=== PATIENT | female | born 1990 | race African-American/Black ===

== ENCOUNTER 2017-07-31 14:06 | Emergency (ER) | payer BC ==
[~2017-07-31] VITALS: Ht 167.6 cm; Wt 101.0 kg
[~2017-07-31 14:06] MED LIST: OMEPRAZOLE
[2017-07-31] MEDS ORDERED: ACETAMINOPHEN 325MG TABLET PO STA (15:16)
[2017-07-31 15:40] LABS: BASOPHILS % 0.6 % (0.0-2.0); EOSINOPHILS % 0.9 % (0.0-5.0); HEMATOCRIT. 41.8 % (36.0-48.0); HEMOGLOBIN. 14.2 g/dL (12.0-16.0); LYMPHOCYTES % 22.4 % (20.0-50.0); MEAN CORPUSCULAR HEMOGLOBIN 30.3 pg (28.0-32.0); MEAN CORPUSCULAR VOLUME 89.4 fL (81.0-99.0); MEAN PLATELET VOLUME 10.5 fl (7.4-10.4); MONOCYTES % 6.7 % (2.0-8.0); NEUTROPHILS % 69.4 % (40.0-76.0); PLATELET 229 x1000/uL (130-400); RED BLOOD CELL COUNT 4.68 mill/uL (4.2-5.4); RED CELL DISTRIBUTION WIDTH 13.3 % (11.6-14.6)
[2017-07-31 15:45] LABS: CHLORIDE 107 mEq/L (98-107)
[2017-07-31 15:47] LABS: HCG SCREEN NEGATIVE
[2017-07-31 15:51] LABS: CARBON DIOXIDE 29 mEq/L (21-32)
[2017-07-31 16:07] LABS: CLARITY URINE CLOUDY (CLEAR); COLOR URINE RED (YELLOW); KETONES URINE NEGATIVE (NEGATIVE); LEUKOCYTE ESTERASE URINE 1+ (NEGATIVE); NITRITE URINE NEGATIVE (NEGATIVE); OCCULT BLOOD URINE 3+ (NEGATIVE); PH URINE 5.5 (4.5-8.0); PROTEIN URINE 2+ (NEGATIVE); SPECIFIC GRAVITY URINE 1.027 (1.005-1.030); UROBILINOGEN URINE 0.2 E.U./dL (0.2-1.0)
[2017-07-31 18:39] VITALS: BP 116/80
== END 2017-07-31 19:13 | disposition home or self-care (01) ==
LOC: ER 14:34
DX: N39.0 Urinary tract infection, site not specified (principal); N94.6 Dysmenorrhea, unspecified; N89.8 Other specified noninflammatory disorders of vagina; F17.200 Nicotine dependence, unspecified, uncomplicated
CPT/HCPCS: 36415; 80053; 81001; 83690; 84703; 85025; 87210; 99284; Z7610

== ENCOUNTER 2017-08-12 16:37 | Emergency (ER) | payer BC | END 2017-08-12 18:26 | disposition left against medical advice (07) | LOC: ER 16:37 | DX: R10.9 Unspecified abdominal pain (principal); Z53.21 Procedure and treatment not carried out due to patient leaving prior to being seen by health care provider ==

== ENCOUNTER 2017-08-14 20:23 | Emergency (ER) | payer BC ==
[~2017-08-14] VITALS: Ht 167.6 cm; Wt 85.0 kg
[2017-08-14 22:17] LABS: CLARITY URINE CLEAR (CLEAR); COLOR URINE YELLOW (YELLOW); KETONES URINE TRACE (NEGATIVE); LEUKOCYTE ESTERASE URINE NEGATIVE (NEGATIVE); NITRITE URINE NEGATIVE (NEGATIVE); OCCULT BLOOD URINE NEGATIVE (NEGATIVE); PH URINE 5.5 (4.5-8.0); PROTEIN URINE NEGATIVE (NEGATIVE); UROBILINOGEN URINE 0.2 E.U./dL (0.2-1.0)
[2017-08-15 07:00] VITALS: BP 107/71
== END 2017-08-15 07:15 | disposition home or self-care (01) ==
LOC: ER 21:43
DX: J03.90 Acute tonsillitis, unspecified (principal); R19.7 Diarrhea, unspecified; R10.9 Unspecified abdominal pain; F17.200 Nicotine dependence, unspecified, uncomplicated; F12.10 Cannabis abuse, uncomplicated; Z90.49 Acquired absence of other specified parts of digestive tract
CPT/HCPCS: 81003; 81025; 99283; Z7610

== ENCOUNTER 2021-09-24 13:46 | Emergency (ER) | payer BC, MEDICAID ==
[~2021-09-24] VITALS: Ht 167.6 cm; Wt 86.0 kg
[2021-09-24] MEDS ORDERED: IBUP-2029 MT (15:54)
[2021-09-24] MEDS ORDERED: KETOROLAC 60MG/2ML VIAL IM ONE (16:00)
[2021-09-24 16:41] VITALS: BP 115/76
== END 2021-09-24 16:51 | disposition home or self-care (01) ==
LOC: ER 13:46
DX: J06.9 Acute upper respiratory infection, unspecified (principal); F17.200 Nicotine dependence, unspecified, uncomplicated; F12.10 Cannabis abuse, uncomplicated; Z90.49 Acquired absence of other specified parts of digestive tract
CPT/HCPCS: 81025; 96372; 99283; J1885

== ENCOUNTER 2021-12-05 20:02 | Emergency (ER) | payer MEDICAID ==
[~2021-12-05] VITALS: Ht 167.6 cm; Wt 89.0 kg
[~2021-12-05 20:02] MED LIST changes: +IBUP-2029 MT
[2021-12-05 23:58] LABS: BASOPHILS % 0.3 % (0.0-2.0); EOSINOPHILS % 1.8 % (0.0-5.0); HEMATOCRIT. 40.6 % (36.0-48.0); HEMOGLOBIN. 13.4 g/dL (12.0-16.0); LYMPHOCYTES % 30.8 % (20.0-50.0); MEAN CORPUSCULAR HEMOGLOBIN 29.6 pg (28.0-32.0); MEAN CORPUSCULAR VOLUME 89.3 fL (81.0-99.0); MEAN PLATELET VOLUME 10.7 fl (7.4-10.4); MONOCYTES % 11.1 % (2.0-8.0); PLATELET 223 x1000/uL (130-400); RED BLOOD CELL COUNT 4.54 mill/uL (4.2-5.4); RED CELL DISTRIBUTION WIDTH 13.8 % (11.6-14.6)
[2021-12-06 00:08] LABS: CHLORIDE 108 mEq/L (98-107)
[2021-12-06] MEDS ORDERED: KETOROLAC 30MG/ML VIAL IV STA (00:11)
[2021-12-06] MEDS ORDERED: ONDANSETRON HCL 4MG/2ML INJ IV STA (00:11)
[2021-12-06] MEDS ORDERED: FAMOTIDINE 20MG/2ML VIAL IV ONE (00:15)
[2021-12-06] MEDS ORDERED: SODIUM CHLORIDE 0.9% 1,000 ML IV ONE (00:15)
[2021-12-06 01:02] LABS: CLARITY URINE CLOUDY (CLEAR); COLOR URINE YELLOW (YELLOW); KETONES URINE TRACE (NEGATIVE); LEUKOCYTE ESTERASE URINE NEGATIVE (NEGATIVE); NITRITE URINE NEGATIVE (NEGATIVE); OCCULT BLOOD URINE NEGATIVE (NEGATIVE); PROTEIN URINE NEGATIVE (NEGATIVE); SPECIFIC GRAVITY URINE 1.035 (1.005-1.030)
[2021-12-06 01:03] LABS: HCG SCREEN NEGATIVE
[2021-12-06 02:00] VITALS: BP 101/59
[2021-12-06] MEDS ORDERED: FAMO-135 MT (02:01)
[2021-12-06] MEDS ORDERED: ONDA4TAB5 MT (02:01)
== END 2021-12-06 02:17 | disposition home or self-care (01) ==
LOC: ER 20:02
DX: K52.9 Noninfective gastroenteritis and colitis, unspecified (principal); F12.10 Cannabis abuse, uncomplicated; Z20.822 Contact with and (suspected) exposure to COVID-19; Z90.49 Acquired absence of other specified parts of digestive tract
CPT/HCPCS: 36415; 80053; 81003; 83690; 84703; 85025; 87426; 96361; 96374; 96375; 99284; J1885; J2405; J3490; J7030